=== PATIENT | female | born 1990 ===

== ENCOUNTER 2017-06-30 16:04 | Emergency (ER) | payer OTHER ==
[2017-06-30] MEDS ORDERED: HYDROcodone/Acetaminophen 5/325 mg Tablet ONE (17:03)
--- NOTE | 2017-06-30 21:19 | RAD ---
LEFT WRIST THREE VIEWS 06/30/17 A transverse nondisplaced fracture of the distal radius is noted. The distal ulna and carpal bones a ppeared intact. IMPRESSION: Nondisplaced fracture of the distal radius. POS: HOME
== END 2017-06-30 17:10 | disposition home or self-care (01) ==
LOC: BURERS 16:04
DX: S52.592A Other fractures of lower end of left radius, initial encounter for closed fracture (principal); W01.0XXA Fall on same level from slipping, tripping and stumbling without subsequent striking against object, initial encounter
CPT/HCPCS: 29125

== ENCOUNTER 2019-02-14 21:08 | Emergency (ER) | payer OTHER ==
[2019-02-14] MEDS ORDERED: AMOXicillin 250 MG CAP ONE (21:57)
[2019-02-14] MEDS ORDERED: Ibuprofen 200 MG TAB ONE (21:57)
== END 2019-02-14 22:02 | disposition home or self-care (01) ==
LOC: BURERS 21:08
DX: J02.0 Streptococcal pharyngitis (principal)
CPT/HCPCS: 87430; 99283